=== PATIENT | male | born 1980 | race African-American/Black ===

== ENCOUNTER 2017-11-26 11:31 | Emergency (ER) | payer MEDICAID, OTHER ==
[2017-11-26] MEDS: HYDROCODONE/APAP (5/325) TAB PO (17:11)
== END 2017-11-26 19:18 | disposition home or self-care (01) ==
LOC: FTE 11:31
DX: S02.652A Fracture of angle of left mandible, initial encounter for closed fracture (principal); S19.9XXA Unspecified injury of neck, initial encounter; S06.0X0A Concussion without loss of consciousness, initial encounter; Y08.89XA Assault by other specified means, initial encounter
CPT/HCPCS: 70450; 70486; 72125; 73562; 99285-25